=== PATIENT | female | born 1955 | race Caucasian/White ===

== ENCOUNTER 2022-11-28 17:54 | Emergency (ER) | payer OTHER ==
[~2022-11-28] VITALS: Ht 154.9 cm; Wt 76.2 kg
[2022-11-28 18:00] VITALS: BP_SYST 177; PULSE 79; RESP 19; TEMP 97.2; O2SAT 97
[2022-11-28] MEDS ORDERED: CORTEARS EACH EAR (19:45)
[2022-11-28] MEDS ORDERED: IBUP-1969 PO (19:45)
[2022-11-29 01:51] VITALS: PULSE 78; RESP 15; O2SAT 97
== END 2022-11-28 20:10 | disposition home or self-care (01) ==
LOC: SED 17:54
DX: H60.91 Unspecified otitis externa, right ear (principal); M79.644 Pain in right finger(s); Z85.3 Personal history of malignant neoplasm of breast; Z79.899 Other long term (current) drug therapy
CPT/HCPCS: 99282